=== PATIENT | female | born 1940 | race Caucasian/White ===

== ENCOUNTER 2022-09-12 19:21 | Emergency (ER) | payer OTHER ==
[2022-09-12 19:36] VITALS: BMI 23.5
[2022-09-12] MEDS ORDERED: ACETAMINOPHEN 1000 MG/100 ML BAG IVPB ONE (20:22)
[2022-09-12] MEDS ORDERED: ACETAMINOPHEN INJECTION 100 ML IVPB ONE (20:32)
[2022-09-12 21:09] LABS: BASO % 0.5 % (0-2.0); EOS % 0.9 % (0-4.5); HEMATOCRIT 37.7 % (32.4-45.2); HEMOGLOBIN 12.8 GM/dL (10.7-15.3); LYMPH % 18.7 % (8-40); MCH 28.4 pg (25.7-33.7); MCHC 33.9 g/dl (32.0-36.0); MEAN CELL VOLUME 83.8 fl (80-96); MEAN PLT VOLUME 9.9 fl (7.5-11.1); MONO % 5.2 % (3.8-10.2); NEUT % 74.7 % (42.8-82.8); PLATELET COUNT 84 10^3/uL (134-434); RBC 4.49 M/mm3 (3.60-5.2); RDW 14.8 % (11.6-15.6); WHITE BLOOD COUNT 7.8 K/mm3 (4.0-10.0)
[2022-09-12 21:16] LABS: INR 1.07 (0.83-1.09); PROTHROMBIN TIME (PATIENT) 12.3 SEC (9.7-13.0)
[2022-09-12 21:19] LABS: ACTIVATED PTT 30.4 SECONDS (25.2-36.5)
[2022-09-12 21:36] LABS: CALCIUM 8.7 mg/dL (8.5-10.1)
[2022-09-12 21:37] LABS: ALBUMIN 3.7 g/dl (3.4-5.0); BLOOD UREA NITROGEN 15.2 mg/dL (7-18)
[2022-09-12 21:40] LABS: CREATININE 0.8 mg/dL (0.55-1.3)
[2022-09-12 21:42] LABS: BILIRUBIN,TOTAL 0.6 mg/dL (0.2-1); TOT PROT 7.2 g/dl (6.4-8.2)
[2022-09-13 01:09] VITALS: BP 135/64; PULSE 72; RESP 17; TEMP 97.9
== END 2022-09-13 01:04 | disposition short-term general hospital (02) ==
LOC: JER 19:21
PROC: 3E033GC Introduction of Other Therapeutic Substance into Peripheral Vein, Percutaneous Approach (ICD-10-PCS; principal; 2022-09-12)
DX: S06.5X0A Traumatic subdural hemorrhage without loss of consciousness, initial encounter (principal); S22.089A Unspecified fracture of T11-T12 vertebra, initial encounter for closed fracture; W10.8XXA Fall (on) (from) other stairs and steps, initial encounter
CPT/HCPCS: 36415; 70450-TC; 71045-TC-FY; 71260-TC; 72125-TC; 73030-TC-LT-FY; 73030-TC-RT-FY; 73060-TC-LT-FY; 73070-TC-LT-FY; 74177-TC; 80053; 85025; 85610; 85730; 86850; 86900; 86901; 93005; 93010; 99291; C9803-CS; Q9967; U0003; U0005